=== PATIENT | female | born 1990 | race Hispanic/Latino ===

== ENCOUNTER 2017-06-24 18:26 | Emergency (ER) | payer OTHER ==
[2017-06-24] MEDS ORDERED: SERTRALINE HCL50 MG PO (19:52)
[2017-06-24 20:02] VITALS: BP 145/80
== END 2017-06-24 20:03 | disposition home or self-care (01) ==
LOC: FSED 18:26
DX: R07.89 Other chest pain (principal); F41.1 Generalized anxiety disorder
CPT/HCPCS: 71046; 80053; 81003; 81025; 82553; 84484; 85025; 93005; 99284